=== PATIENT | male | born 1950 | race Caucasian/White ===

== ENCOUNTER 2022-07-06 14:16 | Emergency (ER) | payer MEDICARE, SELFPAY ==
[2022-07-06 14:30] VITALS: PULSE 95; RESP 18; TEMP 37.1; O2SAT 95; BMI 25.9
--- NOTE | 2022-07-06 14:31 | XR_ITS ---
WS: [id number] Exam: XR chest 2V* [id number] Date/Time of Exam: 07/06/2022 2:55 PM Reason For Exam: severe cough No prior exams. The lungs are clear and fully expanded. No pleural effusions. There appears to be widening of the med iastinum. Heart size is normal. Bony structures are intact. Spondylosis of the T-spine. Recommendations: Consider contrast CT scanning of the chest for further workup. XR/XR chest 2V* [id number] IMPRESSION: 1. Widening of the mediastinum. The possibility of mass or lymphadenopathy is n ot excluded. 2. The lungs are clear. No infiltrate or pneumothorax.
--- NOTE | 2022-07-06 14:57 | ED_ITS ---
Documented by User: CRYSTAL Soriano 07/07/22 17:12 HPI - URI/Sore Throat General: Chief Complaint: Upper Respiratory Infection Stated Complaint: Severe Cough Time Seen by Provider: 07/06/22 14:56 History of Present Illness: Patient is a 71-year-old male comes to the ED with productive cough. Patient was diagnosed with COVID-19 2 weeks ago. He completed course of Paxlovid. he continues to have nasal congestion and drainage and a productive cough with thick clear and yellow sputum. Denies any fevers, nausea/vomiting, diarrhea, chest pain or shortness of breath. Associated symptoms: Reports nasal congestion; Deny abdominal pain, chills, chest pain, diarrhea, fever(s), headache(s), nausea or vomiting Review of Systems Const: Denies: fever(s), chills or fatigue Eyes: Denies: change in vision or eye discomfort ENMT: Reports: nasal discharge and nasal congestion; Denies: throat pain or odynophagia Card: Denies: chest pain, palpitations, edema, swelling of feet/ankles, dyspnea on exertion or orthopnea Resp: Reports: productive cough; Denies: dyspnea or non-productive cough GI: Denies: abdominal pain, nausea, vomiting, diarrhea, constipation or hematochezia : Denies: flank pain, difficulty urinating, dysuria or hematuria Musc: Denies: neck pain, back pain or extremity swelling Skin/Breast: Denies: rash or new lesions Neuro: Denies: headache(s), numbness in extremities or weakness in extremities [facility] ED PFSH: Medical History No pertinent family history Surgical History (Updated 07/07/22 @ 17:12 by CRYSTAL Soriano) No pertinent past surgical history Physical Exam Const: COMMON NORMALS: patient oriented x3 and alert HENMT: COMMON NORMALS: normocephalic HEAD & SCALP: normocephalic MOUTH: Normal oral and palatal mucosa present THROAT: posterior oropharynx normal and uvula midline Neck/C-Spine: COMMON NORMALS: supple GENERAL: Yes normal visual inspection Resp: COMMON NORMALS: normal respiratory effort, No retractions, No use of accessory muscles and clear to auscultation bilaterally EFFORT & INSPECTION: Yes Actively coughing dry AUSCULTATION: clear to auscultation bilaterally Cardio: COMMON NORMALS: regular rate, regular rhythm, S1 normal heart sound present, S2 normal heart sound present, No gallops present (Cardio), No clicks present (Cardio), No murmurs present (Cardio) and Peripheral pulses 2+ throughout RATE: regular rate RHYTHM: regular rhythm HEART SOUNDS: S1 normal heart sound present and S2 normal heart sound present PERIPHERAL PULSES: Peripheral pulses 2+ throughout GI: COMMON NORMALS: Normal to inspection, nondistended, normoactive bowel sounds present, Soft to palpation, non-tender and no masses PALPATION: Yes Soft to palpation : COMMON NORMALS: Yes no CVA tenderness BLADDER/KIDNEY EXAM: Yes no CVA tenderness Back/Pelvis: COMMON NORMALS: no CVA tenderness Extremity: COMMON NORMALS: normal to inspection Neuro: COMMON NORMALS: patient oriented x3 SENSORIUM/ORIENTATION: Yes alert GAIT: Yes Normal gait present Skin: GENERAL SKIN EXAM: dry skin Course Vital Signs: Vital signs: Vital Signs Temperature 98.8 F 07/06/22 14:30 Pulse Rate 95 07/06/22 14:30 Respiratory Rate 18 07/06/22 14:30 Pulse Oximetry 95 07/06/22 14:30 Oxygen Delivery Me thod 07/06/22 14:30 MDM - URI/Sore Throat Lab Data I reviewed the patient's lab results. : 07/06/22 15:25 07/06/22 15:25 Radiology Impressions Chest X-Ray 07/06/22 14:31 IMPRESSION: 1. Widening of the mediastinum. The possibility of mass or lymphadenopathy is not excluded. 2. The lungs are clear. No infiltrate or pneumothorax. Chest CTA 07/06/22 15:25 IMPRESSION: 1. Severe calcified coronary artery disease. 2. No pulmonary embolus or aortic dissection. COMMENTS: Consistent with the [employer]'s Incidental Findings Committee white paper (J Am Linh Radiol 2018): Any incidental renal lesion less than 1 cm or classified as too small to characterize, or any incidental cystic renal lesion characterized as simple-appearing, is likely benign. No follow-up imaging is recommended for these lesions per consensus recommendations based on imaging criteria. Laboratory Results WBC 5.4 10^3/uL (4.0-10.0) 07/06/22 15:25 RBC 5.23 10^6/uL (4.1-5.3) 07/06/22 15:25 Hgb 14.9 g/dL (11.7-16.6) 07/06/22 15:25 Hct 46.8 % (42.0-52.0) 07/06/22 15:25 MCV 89.5 fl (80-94) 07/06/22 15:25 MCH 28.5 pg (28.0-34.0) 07/06/22 15:25 MCHC 31.8 g/dL (30.0-36.0) 07/06/22 15:25 RDW 12.6 % (12.1-15.1) 07/06/22 15:25 Plt Count 212 10^3/cmm (130-400) 07/06/22 15:25 MPV 9.5 fL (7.4-10.4) 07/06/22 15:25 Neut % (Auto) 57.7 % 07/06/22 15:25 Lymph % (Auto) 24.1 % 07/06/22 15:25 Hand % (Auto) 14.5 % 07/06/22 15:25 Eos % (Auto) 2.6 % 07/06/22 15:25 Baso % (Auto) 0.9 % 07/06/22 15:25 Neut # (Auto) 3.13 10^3/uL (1.8-7.7) 07/06/22 15:25 Lymph # (Auto) 1.3 10^3/uL (0.8-4.8) 07/06/22 15:25 Hand # (Auto) 0.8 10^3/uL (0.2-0.9) 07/06/22 15:25 Eos # (Auto) 0.1 10^3/uL (0.0-0.8) 07/06/22 15:25 Baso # (Auto) 0.1 10^3/uL (0.0-0.1) 07/06/22 15:25 Nucleated RBC % (auto) 0 % 07/06/22 15:25 Nucleated RBCs # 0.0 /100WBC 07/06/22 15:25 Sodium 135 mmol/L (136-145) L 07/06/22 15:25 Potassium 4.1 mmol/L (3.5-5.1) 07/06/22 15:25 Chloride 102 mmol/L (98-107) 07/06/22 15:25 Carbon Dioxide 24 mmol/L (22-29) 07/06/22 15:25 Anion Gap 13.1 (5-19) 07/06/22 15:25 BUN 12 mg/dL (8-23) 07/06/22 15:25 Creatinine 0.8 mg/dL (0.7-1.2) 07/06/22 15:25 GFR Calculation Not Reportable 07/06/22 15:25 Glucose 95 mg/dL (65-115) 07/06/22 15:25 Calculated Osmolality 280 mOsm/kg (285-295) L 07/06/22 15:25 Calcium 8.8 mg/dL (8.5-10.5) 07/06/22 15:25 Discharge Plan Discharge Patient Disposition: Home Clinical Impression: Bronchitis Condition: Stable Prescriptions: New albuterol sulfate 90 mcg/actuation aerosol powdr breath activated 2 inh inhalation Q6H PRN (Reason: shortness of breath or wheezing) Qty: 1 0RF azithromycin 250 mg tablet See Rx Instructions .ROUTE .COMPLEX Qty: 6 0RF Rx Instructions: For 250 mg dose pack: take 500 mg today (day 1), then 250 mg for 4 days (days 2-5) Methylpred DP 4 mg tablets,dose pack See Rx Instructions .ROUTE .COMPLEX Qty: 21 0RF Rx Instructions: orally per package directions Discharge Orders: Discharge ED (Routine); Ordered 07/06/22 Ordered By: Jed Calderón Discharge Diet: Regular Discharge Activity: Increase activity as tolerated Patient Instructions: Acute Bronchitis (ED) Activity Restrictions/Additional Instructions: Follow-up with medical provider as directed. Take medications as prescribed. Return to the ER or your medical provider if condition worsens. Please read and understand discharge instructions. Thank you for choosing [facility] for your healthcare needs today. Please realize this is an emergency room and that we are providing you with a medical screening exam and this may not be complete and all inclusive of all the testing and or work up that you may need to determine your ailment or severity of your illness. It is very important that you follow up as instructed or that you return to the Emergency Department should you have concerns or if your condition changes or worsens in any way. Sign Out Sign Out Data: Patient Sign Out occurred on 07/06/22 at 16:59. Patient's care was discussed, and care was transferred from to Jed Calderón. Coding Level of Care Code ED Bilingual Student Tutor for Chg Fwd Exam Comprehensive Documented by User: TRUMAN Dodson 07/06/22 17:04 HPI - URI/Sore Throat General: Chief Complaint: Upper Respiratory Infection Stated Complaint: Severe Cough Time Seen by Provider: 07/06/22 14:56 PFSH ED PFSH: Medical History No pertinent family history Surgical History (Updated 07/07/22 @ 17:12 by CRYSTAL Soriano) No pertinent past surgical history Course Vital Signs: Vital signs: Vital Signs Temperature 98.8 F 07/06/22 14:30 Pulse Rate 95 07/06/22 14:30 Respiratory Rate 18 07/06/22 14:30 Pulse Oximetry 95 07/06/22 14:30 Oxygen Delivery Ri thod 07/06/22 14:30 MDM - URI/Sore Throat Medical Decision Making This patient was seen by Fernando Leon PA-C. He had signed this patient out to me awaiting final report of chest CTA. Patient been ill for 2 weeks after testing positive for COVID-19. X-ray of the chest noted a widened mediastinum which prompted chest CTA. Chest CTA reported severe coronary artery disease but no evidence of pulmonary embolism or aortic dissection. Patient was discharged home with azithromycin and albuterol inhaler. With recommendations to follow-up with primary care for the treatment of bronchitis Differential Diagnosis Likely upper respiratory infection, viral infection and bronchitis Lab Data : 07/06/22 15:25 07/06/22 15:25 Radiology Impressions Chest X-Ray 07/06/22 14:31 IMPRESSION: 1. Widening of the mediastinum. The possibility of mass or lymphadenopathy is not excluded. 2. The lungs are clear. No infiltrate or pneumothorax. Chest CTA 07/06/22 15:25 IMPRESSION: 1. Severe calcified coronary artery disease. 2. No pulmonary embolus or aortic dissection. COMMENTS: Consistent with the [employer]'s Incidental Findings Committee white paper (J Am Linh Radiol 2018): Any incidental renal lesion less than 1 cm or classified as too small to characterize, or any incidental cystic renal lesion characterized as simple-appearing, is likely benign. No follow-up imaging is recommended for these lesions per consensus recommendations based on imaging criteria. Laboratory Results WBC 5.4 10^3/uL (4.0-10.0) 07/06/22 15:25 RBC 5.23 10^6/uL (4.1-5.3) 07/06/22 15:25 Hgb 14.9 g/dL (11.7-16.6) 07/06/22 15:25 Hct 46.8 % (42.0-52.0) 07/06/22 15:25 MCV 89.5 fl (80-94) 07/06/22 15:25 MCH 28.5 pg (28.0-34.0) 07/06/22 15:25 MCHC 31.8 g/dL (30.0-36.0) 07/06/22 15:25 RDW 12.6 % (12.1-15.1) 07/06/22 15:25 Plt Count 212 10^3/cmm (130-400) 07/06/22 15:25 MPV 9.5 fL (7.4-10.4) 07/06/22 15:25 Neut % (Auto) 57.7 % 07/06/22 15:25 Lymph % (Auto) 24.1 % 07/06/22 15:25 Hand % (Auto) 14.5 % 07/06/22 15:25 Eos % (Auto) 2.6 % 07/06/22 15:25 Baso % (Auto) 0.9 % 07/06/22 15:25 Neut # (Auto) 3.13 10^3/uL (1.8-7.7) 07/06/22 15:25 Lymph # (Auto) 1.3 10^3/uL (0.8-4.8) 07/06/22 15:25 Hand # (Auto) 0.8 10^3/uL (0.2-0.9) 07/06/22 15:25 Eos # (Auto) 0.1 10^3/uL (0.0-0.8) 07/06/22 15:25 Baso # (Auto) 0.1 10^3/uL (0.0-0.1) 07/06/22 15:25 Nucleated RBC % (auto) 0 % 07/06/22 15:25 Nucleated RBCs # 0.0 /100WBC 07/06/22 15:25 Sodium 135 mmol/L (136-145) L 07/06/22 15:25 Potassium 4.1 mmol/L (3.5-5.1) 07/06/22 15:25 Chloride 102 mmol/L (98-107) 07/06/22 15:25 Carbon Dioxide 24 mmol/L (22-29) 07/06/22 15:25 Anion Gap 13.1 (5-19) 07/06/22 15:25 BUN 12 mg/dL (8-23) 07/06/22 15:25 Creatinine 0.8 mg/dL (0.7-1.2) 07/06/22 15:25 GFR Calculation Not Reportable 07/06/22 15:25 Glucose 95 mg/dL (65-115) 07/06/22 15:25 Calculated Osmolality 280 mOsm/kg (285-295) L 07/06/22 15:25 Calcium 8.8 mg/dL (8.5-10.5) 07/06/22 15:25 Discharge Plan Discharge Patient Disposition: Home Clinical Impression: Bronchitis Condition: Stable Prescriptions: New albuterol sulfate 90 mcg/actuation aerosol powdr breath activated 2 inh inhalation Q6H PRN (Reason: shortness of breath or wheezing) Qty: 1 0RF azithromycin 250 mg tablet See Rx Instructions .ROUTE .COMPLEX Qty: 6 0RF Rx Instructions: For 250 mg dose pack: take 500 mg today (day 1), then 250 mg for 4 days (days 2-5) Methylpred DP 4 mg tablets,dose pack See Rx Instructions .ROUTE .COMPLEX Qty: 21 0RF Rx Instructions: orally per package directions Discharge Orders: Discharge ED (Routine); Ordered 07/06/22 Ordered By: Jed Calderón Discharge Diet: Regular Discharge Activity: Increase activity as tolerated Patient Instructions: Acute Bronchitis (ED) Activity Restrictions/Additional Instructions: Follow-up with medical provider as directed. Take medications as prescribed. Return to the ER or your medical provider if condition worsens. Please read and understand discharge instructions. Thank you for choosing [facility] for your healthcare needs today. Please realize this is an emergency room and that we are providing you with a medical screening exam and this may not be complete and all inclusive of all the testing and or work up that you may need to determine your ailment or severity of your illness. It is very important that you follow up as instructed or that you return to the Emergency Department should you have concerns or if your condition changes or worsens in any way. Sign Out Sign Out Data: Patient Sign Out occurred on 07/06/22 at 16:59. Patient's care was discussed, and care was transferred from to Jed Calderón. Coding Level of Care Code ED Bilingual Student Tutor for Darrick Connors Exam Comprehensive
--- NOTE | 2022-07-06 15:25 | CTR_ITS ---
PROCEDURE INFORMATION: Exam: CTA Chest With Contrast Exam date and time: 07/06/2022 4:20 PM Age: 71 years old Clinical indication: Abnormal findings; Abnormal radiologic exam of lung or chest; Shortness of breath; Additional info: Productive cough, widening of mediastinum TECHNIQUE: Imaging protocol: Computed tomographic angiography of the chest with contrast. 3D rendering (Not supervised by radiologist): MIP and/or 3D reconstructed images were created by the technologist. Radiation optimization: All CT scans at this facility use at least one of these dose optimization techniques: automated exposure control; mA and/or kV adjustment per patient size (includes targeted exams where dose is matched to clinical indication); or iterative reconstruction. Contrast material: OMNI 350; Contrast volume: 95 ml; Contrast route: INTRAVENOUS (IV); COMPARISON: CR XR chest 2V* [id number] 07/06/2022 2:59 PM RADIATION DOSE METRICS: Total DLP (mGy-cm): 377.6 FINDINGS: Pulmonary arteries: No pulmonary embolus or aortic dissection. Aorta: Calcification of the thoracic aorta and/or great vessels consistent with atherosclerotic vessel disease. Lungs: Unremarkable. No consolidation. No masses. Pleural spaces: Unremarkable. No pneumothorax. No pleural effusion. Heart: Severe calcified coronary artery disease. Lymph nodes: Unremarkable. No enlarged lymph nodes. Kidneys and ureters: Left renal simple cyst measuring >1.0 cm. Bones/joints: Moderate thoracic spondylosis. Soft tissues: Unremarkable. CT/CT angio chest PE protcl [id number] IMPRESSION: 1. Severe calcified coronary artery disease. 2. No pulmonary embolus or aortic dissection. COMMENTS: Consistent with the [employer]'s Incidental Findings Committee white paper (J Am Linh Radiol 2018): Any incidental renal lesion less than 1 cm or classified as too small to characterize, or any incidental cystic renal lesion characterized as simple-appearing, is likely benign. No follow-up imaging is recommended for these lesions per consensus recommendations based on imaging criteria.
[2022-07-06 15:31] LABS: Basophils # 0.1 10^3/uL (0.0-0.1); Basophils % 0.9 %; Eosinophils # 0.1 10^3/uL (0.0-0.8); Eosinophils % 2.6 %; Hematocrit 46.8 % (42.0-52.0); Hemoglobin 14.9 g/dL (11.7-16.6); Lymphocytes # 1.3 10^3/uL (0.8-4.8); Lymphocytes % 24.1 %; Mean Corpuscular HGB Conc 31.8 g/dL (30.0-36.0); Mean Corpuscular Hemoglobin 28.5 pg (28.0-34.0); Mean Corpuscular Volume 89.5 fl (80-94); Mean Platelet Volume 9.5 fL (7.4-10.4); Monocytes # 0.8 10^3/uL (0.2-0.9); Monocytes % 14.5 %; Neutrophils # 3.13 10^3/uL (1.8-7.7); Neutrophils % 57.7 %; Nucleated Red Blood Cells % 0 %; Platelet Count 212 10^3/cmm (130-400); Red Blood Count 5.23 10^6/uL (4.1-5.3); Red Cell Distribution Width 12.6 % (12.1-15.1); White Blood Count 5.4 10^3/uL (4.0-10.0)
[2022-07-06 15:50] LABS: Anion Gap 13.1 (5-19); Blood Urea Nitrogen 12 mg/dL (8-23); Calcium 8.8 mg/dL (8.5-10.5); Carbon Dioxide 24 mmol/L (22-29); Chloride 102 mmol/L (98-107); Glucose 95 mg/dL (65-115); Osmolality Calculated 280 mOsm/kg (285-295); Potassium 4.1 mmol/L (3.5-5.1); Sodium 135 mmol/L (136-145)
== END 2022-07-06 17:09 | disposition home or self-care (01) ==
PROVIDERS: Emergency Medicine; Emergency Provider Nurse Practitioner Family
DX: J40 Bronchitis, not specified as acute or chronic (principal)
CPT/HCPCS: 36415; 71046; 71275; 80048; 85025; 99284